=== PATIENT | male | born 1995 | race Caucasian/White ===

== ENCOUNTER 2022-03-10 23:30 | Emergency (ER) | payer OTHER ==
--- NOTE | 2022-03-10 23:34 | NUR ---
PT BIBA BLS. TAKEN TO BED 9
--- NOTE | 2022-03-10 23:41 | NUR ---
PT LEFT THE ER
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
--- NOTE | 2022-03-10 23:56 | NUR ---
TEX MANSFIELD NOTIFIED
--- NOTE | 2022-03-11 00:44 | NUR ---
OLGA MANSFIELD RETURNED PT TO ER VIA ALS. PT IS PLACED ON RESTRAINTS AND PD WRITING [id number]. PER PD PT STATED "IF I HAVE TO GO BACK TO THE HOSPITAL I WILL FIND A WAY TO HURT MYSELF."
--- NOTE | 2022-03-11 00:58 | NUR ---
PATIENT LEFT WITHOUT BEING SEEN BY DR VILLA. NO FURTHER CARE PROVIDED FOR PATIENT. PER ALS PT IS A/OX2. PD NOTIFED AND ASKED TO RETURN PT TO ER FOR FURTHER EVAL.
== END 2022-03-10 23:41 | disposition left against medical advice (07) ==
LOC: MED 23:30
DX: R41.82 Altered mental status, unspecified (principal); Z53.21 Procedure and treatment not carried out due to patient leaving prior to being seen by health care provider

== ENCOUNTER 2022-03-11 00:40 | Emergency (ER) | payer OTHER ==
[~2022-03-11] VITALS: Ht 177.8 cm; Wt 83.9 kg
--- NOTE | 2022-03-11 00:40 | NUR ---
PT IS IN 4 POINT VELCRO RESTRAINTS. CMS INTACT BEFORE AND AFTER APLICATION. ER AWARE.
--- NOTE | 2022-03-11 00:40 | NUR ---
PT BLU ALS. TAKEN TO BED 9
--- NOTE | 2022-03-11 00:44 | NUR ---
OLGA MANSFIELD RETURNED PT TO ER VIA ALS. PT IS PLACED ON RESTRAINTS AND PD WRITING 1460. PER PD PT STATED "IF I HAVE TO GO BACK TO THE HOSPITAL I WILL FIND A WAY TO HURT MYSELF."
--- NOTE | 2022-03-11 00:55 | NUR ---
03/10/22 @ 2342 26 Y/O MALE BIBA. REPORT WAS GIVEN TO NURSE BY MEDIC. PT MOVED TO BED 9. PT SEEMED AGGITATED AND FIDGETING. PT WAS A/OX2 WITH MEDIC EN ROUTE. AT HOSPITAL PT JUMPED OUT OF BED, FLUNG OPEN CURTAINS OF NEARBY PATIENTS, AND EXITED OUT BACK ENTRANCE OF ER PRIOR TO ASSESSMENT BY RN/MD. PT IS NOT ON A HOLD. SECURITY WAS NOTIFIED TO BRING PT BACK TO ER BUT WAS UNSUCCESSFUL.
--- NOTE | 2022-03-11 00:57 | NUR ---
03/10/22 @ 9959 TEX MANSFIELD NOTIFIED ABOUT PT LWBS, ASKED TO RETURN PT ER FOR FURTHER EVEAL.
[2022-03-11 01:06] LABS: BASOPHILS # (AUTO) 0.1 K/uL (0.00-0.22); BASOPHILS % (AUTO) 0.5 % (0.0-2.0); EOSINOPHILS # (AUTO) 0.2 K/uL (0-0.4); EOSINOPHILS % (AUTO) 1.2 % (0.0-4.0); HEMOGLOBIN 11.9 g/dL (12.0-18.0); LYMPHOCYTES # (AUTO) 1.7 K/uL (2.0-11.5); LYMPHOCYTES % (AUTO) 12.7 % (20.5-51.1); MEAN CORPUSCULAR HEMOGLOBIN 29 pg (27-31); MEAN CORPUSCULAR HGB CONC 33 g/dL (33-37); MEAN CORPUSCULAR VOLUME 88.5 fL (80-94); MONOCYTES # (AUTO) 1.4 K/uL (0.8-1.0); NEUTROPHILS # (AUTO) 10.4 K/uL (1.8-7.7); NEUTROPHILS % (AUTO) 75.6 % (42.2-75.2); PLATELET COUNT (AUTO) 326 K/uL (140-450); RED BLOOD CELL COUNT(AUTO) 4.07 MIL/uL (4.20-6.10); RED CELL DISTRIBUTION WIDTH 13.5 % (11.6-13.7); WHITE BLOOD COUNT (AUTO) 13.8 K/uL (4.8-10.8)
[2022-03-11 01:25] LABS: ALBUMIN 3.6 g/dL (3.4-5.0); ANION GAP 12.6 (8-16); ASPARTATE AMINOTRANSFERASE 165 U/L (15-37); CARBON DIOXIDE 26.1 mmol/L (21-32); CHLORIDE 104 mmol/L (98-107); CREATININE 0.9 mg/dL (0.6-1.3); GFR ARICAN-AMERICAN 129 mL/min (>90); GLUCOSE 75 mg/dL (74-106); POTASSIUM 3.7 mmol/L (3.5-5.1); SODIUM SERUM 139 mmol/L (136-145); TOTAL BILIRUBIN 0.8 mg/dL (0.0-1.0); UREA NITROGEN, BLOOD 13 mg/dL (7-18)
[2022-03-11 01:28] LABS: ACETAMINOPHEN < 0.5 ug/ml (10-30); SALICYLATE < 2.8 mg/dL (2.8-20.0)
[2022-03-11 01:36] VITALS: BP 170/80
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
--- NOTE | 2022-03-11 02:55 | NUR ---
PT GAVE A POC FOR FIANCE/GIRLFRIEND MACK CAMPA
--- NOTE | 2022-03-11 03:12 | NUR ---
Dr. Peoples examining patient.
--- NOTE | 2022-03-11 03:42 | NUR ---
PT TAKEN TO CT
--- NOTE | 2022-03-11 03:55 | NUR ---
PT RETURN FROM CT TO ER BED 5
--- NOTE | 2022-03-11 05:57 | NUR ---
RETURN CALL FROM TELEPSYCH DOCTOR WHO SPOKE WITH PRIMARY RN Cristian RICHARD
--- NOTE | 2022-03-11 06:01 | NUR ---
TELEPSYCH DR. CORBIN SPEAKING WITH PT VIA REMOTE COMMUNICATION
--- NOTE | 2022-03-11 06:09 | NUR ---
Dr. Lynn examining patient.
--- NOTE | 2022-03-11 06:10 | NUR ---
PT TALKING TO PSYCHIATRIST VIA IPAD. PT IS TOO SLEEPY TO INTERACT APPROPRIATELY. SPOKE WITH ER . PT IS TO REMAIN ON 5150 HOLD UNTIL RE-EVAL AT A LATER TIME.
--- NOTE | 2022-03-11 06:20 | NUR ---
COVID/KYLE AND RESP PANEL SWABBED AND WALKED TO LAB.
--- NOTE | 2022-03-11 07:38 | NUR ---
REPORT RECIEVED FROM ALIYA MILLS. ASSUMED CARE AT THIS TIME
--- NOTE | 2022-03-11 08:43 | NUR ---
attempted to wake pt. pt states not hungry and still very sleepy.
--- NOTE | 2022-03-11 09:05 | NUR ---
pt awake, eating breakfast
--- NOTE | 2022-03-11 12:30 | NUR ---
PATIENT AMBULATED WITH STEADY TO RESTROOM TO PROVIDE URINE SAMPLE.
[2022-03-11 13:59] LABS: APPEARANCE,URINE HAZY (CLEAR); BILIRUBIN,URINE 2+ (NEGATIVE); BLOOD, URINE TRACE-I (NEGATIVE); COLOR,URINE ORANGE (YELLOW); LEUKOCYTE ESTERASE ,URINE NEGATIVE (NEGATIVE); NITRITE, URINE NEGATIVE (NEGATIVE); UGLUCOSE NEGATIVE (NEGATIVE)
[2022-03-11 14:03] LABS: BARBITURATE, URINE NEGATIVE ng/ml (NEG <=200)
[2022-03-11 14:04] LABS: BENZODIAZEPINE, URINE NEGATIVE ng/mL (NEG <=200); CANNABINOID, URINE NEGATIVE ng/mL (NEG <=50); COCAINE, URINE NEGATIVE ng/mL (NEG <=300); OPIATE, URINE POSITIVE ng/mL (NEG <=2000); PHENCYCLIDINE SCREEN,URINE NEGATIVE ng/mL (NEG <=25)
[2022-03-11 14:21] LABS: RBC,URINE 80-100 /HPF (0-5); WBC,URINE 0-5 /HPF (0-5)
[2022-03-11 15:50] VITALS: BP 137/72
--- NOTE | 2022-03-11 17:07 | NUR ---
Patient discharged with v/s stable. Written and verbal after care instructions ABOUT SUBSTANCE ABUSE given and explained. Patient verbalized understanding. Ambulatory with steady gait. All questions addressed prior to discharge. Advised to follow up with PMD. Addendum: 03/11/22 at 1713 by PHSEP Patient discharged with v/s stable. Written and verbal after care instructions given and explained. Patient verbalized understanding. Ambulatory with steady gait. All questions addressed prior to discharge. Advised to follow up with PMD. PT PROVIDED WITH SUBSTANCE ABUSE RESOURCES , OFFERED FOOD AND CLOTHING . PT DENIED FOOD AND CLOTHING
== END 2022-03-11 17:07 | disposition admitted as inpatient to this hospital (09) ==
LOC: MED 00:40
DX: R41.82 Altered mental status, unspecified (principal); Z20.822 Contact with and (suspected) exposure to COVID-19
CPT/HCPCS: 36415; 70450; 80053; 80305; 81001; 85025; 87426; 87635; 99285; C9803; G0480; G0482

== ENCOUNTER 2023-01-27 09:14 | Emergency (ER) | payer OTHER ==
[~2023-01-27] VITALS: Ht 182.9 cm; Wt 81.6 kg
[2023-01-27 09:22] VITALS: BP 147/99
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
--- NOTE | 2023-01-27 11:43 | NUR ---
PT CALLED IN LOBBY. NO ANSWER.
--- NOTE | 2023-01-27 11:47 | NUR ---
PATIENT LEFT WITHOUT BEING SEEN BY DR. SEN. NO FURTHER CARE PROVIDED FOR PATIENT.
== END 2023-01-27 11:47 | disposition left against medical advice (07) ==
LOC: MED 09:14
DX: M79.644 Pain in right finger(s) (principal); Z53.21 Procedure and treatment not carried out due to patient leaving prior to being seen by health care provider
CPT/HCPCS: 99281

== ENCOUNTER 2023-05-22 17:10 | Emergency (ER) | payer OTHER ==
[~2023-05-22] VITALS: Ht 180.3 cm; Wt 76.3 kg
[2023-05-22 17:15] VITALS: BP 149/96; PULSE 84; RESP 20; TEMP 98; O2SAT 98
--- NOTE | 2023-05-22 18:33 | NUR ---
Pt bibs for pain and swelling in L index finger. Pt placed a ring on finger "about 3 days ago" and today it was too swollen to remove. Pt has some pain, 4/10, non radiating, constant, ache. Ring is made of bismark. Pt is a/o x 4, vss, no ss of acute distress, breathing equal and unlabored, speech clear. Mid level has seen pt.
--- NOTE | 2023-05-22 18:34 | NUR ---
Mid level was successful in removing ring. Ring was broken in two using raptors ring cutters. Pt expedietly left er without speaking to anyone once staff was at nursing station. I called out for pt, but he walked faster after being called.
[2023-05-22 19:07] VITALS: BP 149/96; PULSE 84; RESP 20; TEMP 98; O2SAT 98
--- NOTE | 2023-05-22 19:07 | NUR ---
PT D/C, LEFT WITHOUT PAPERWORK.
== END 2023-05-22 19:07 | disposition home or self-care (01) ==
LOC: MED 17:10
DX: S60.441A External constriction of left index finger, initial encounter (principal); W49.04XA Ring or other jewelry causing external constriction, initial encounter; Y92.009 Unspecified place in unspecified non-institutional (private) residence as the place of occurrence of the external cause; Y93.89 Activity, other specified; Y99.8 Other external cause status
CPT/HCPCS: 99284

== ENCOUNTER 2024-03-18 10:00 | Emergency (ER) | payer OTHER ==
[~2024-03-18] VITALS: Ht 180.3 cm; Wt 81.6 kg
[2024-03-18 10:16] VITALS: BP 163/92; PULSE 99; RESP 18; TEMP 97.8; O2SAT 99
[2024-03-18] MEDS: KETOROLAC 30 MG/ML VIAL IM ONE (11:23)
[2024-03-18] MEDS ORDERED: IBUP-2213 PO (11:25)
[2024-03-18 11:44] VITALS: BP 132/78; PULSE 88; RESP 18; TEMP 98.3; O2SAT 99
== END 2024-03-18 11:46 | disposition home or self-care (01) ==
LOC: MED 10:00
DX: S43.102A Unspecified dislocation of left acromioclavicular joint, initial encounter (principal); W19.XXXA Unspecified fall, initial encounter; Y93.51 Activity, roller skating (inline) and skateboarding; Y92.89 Other specified places as the place of occurrence of the external cause; Y99.8 Other external cause status
CPT/HCPCS: 73030; 96372; 99283; J1885

== ENCOUNTER 2024-07-30 22:03 | Emergency (ER) | payer OTHER ==
[~2024-07-30] VITALS: Ht 175.3 cm; Wt 81.6 kg
[~2024-07-30 22:03] MED LIST: IBUP-2213 PO
[2024-07-30 22:05] VITALS: BP 125/84; PULSE 109; RESP 18; TEMP 98.2; O2SAT 98
[2024-07-30 22:53] VITALS: TEMP 98.1
[2024-07-30 23:55] VITALS: BP 116/83; PULSE 71; RESP 12; O2SAT 99
== END 2024-07-30 23:55 ==
LOC: MED 22:03
DX: F11.20 Opioid dependence, uncomplicated (principal); Z79.899 Other long term (current) drug therapy
CPT/HCPCS: 99283